=== PATIENT | male | born 1990 | race Caucasian/White ===

== ENCOUNTER 2023-03-16 20:40 | Emergency (ER) | payer MEDICAID ==
[~2023-03-16] VITALS: Ht 165.1 cm; Wt 62.0 kg
[2023-03-16 21:23] VITALS: O2SAT 100
[2023-03-16 22:50] VITALS: BP 117/72; PULSE 51; RESP 16; TEMP 98
== END 2023-03-16 23:17 | disposition home or self-care (01) ==
LOC: ER 20:40
DX: S00.03XA Contusion of scalp, initial encounter (principal); W51.XXXA Accidental striking against or bumped into by another person, initial encounter; Y93.67 Activity, basketball; Y92.89 Other specified places as the place of occurrence of the external cause; Y99.8 Other external cause status
CPT/HCPCS: 99281